=== PATIENT | male | born 1985 ===

== ENCOUNTER 2023-07-01 06:00 | Day surgery (SDC) | payer OTHER ==
[2023-06-29 09:58] LABS: HEMATOCRIT 44.7 % (39.0-48.0); HEMOGLOBIN 15.6 g/dL (13-16.00); MEAN CORPUSCULAR HEMOGLOBIN 31.3 pg (27.00-32.0); MEAN CORPUSCULAR HGB CONC 34.8 g/dl (32.0-36.0); PLATELET COUNT 251 K/uL (150-450); RED BLOOD COUNT 4.96 M/uL (4.00-6.00); RED CELL DISTRIBUTION WIDTH 13.3 % (11.5-14.5)
[2023-06-29 10:01] LABS: PH,URINE 5.5 (5.0-8.0); URINE APPEARANCE Clear; URINE BILIRRUBIN Negative (NEGATIVE); URINE BLOOD Negative; URINE COLOR Yellow; URINE GLUCOSE Negative (NEGATIVE); URINE LEUKOCYTE Negative; URINE NITRATE Negative; URINE PROTEIN Negative (NEGATIVE); URINE UROBILINOGEN 0.2 E.U./dl
[2023-06-29 10:05] LABS: URINE BACTERIA 6.2 uL (0.0-1933); URINE WBC 3.2 uL (0.0-23.2)
[2023-06-29 10:30] LABS: INR 1.04; PARTIAL THROMBOPLASTIN TIME 28.5 SECONDS (22.0-34.0); PROTHROMBIN TIME 10.9 SECONDS (9.0-11.5)
[2023-06-29 10:35] LABS: CREATININE SERUM 0.98 mg/dL (0.70-1.30); GFR 86.06; POTASSIUM 3.75 mEq/L (3.5-5.1)
[~2023-07-01] VITALS: Ht 172.7 cm; Wt 79.8 kg
[~2023-07-01 06:00] MED LIST: TAMS0.4C PO
== END 2023-07-01 15:10 | disposition home or self-care (01) ==
LOC: CIR.AMB 06:00
PROVIDERS: ATTEND Urology
DX: N20.0 Calculus of kidney (principal); Z20.822 Contact with and (suspected) exposure to COVID-19

== ENCOUNTER 2023-07-06 07:38 | Outpatient (CLI) | payer OTHER | END 2023-07-06 07:39 | disposition home or self-care (01) | LOC: RAD 07:38 | PROVIDERS: ATTEND Urology | DX: N20.0 Calculus of kidney (principal) ==